=== PATIENT | female | born 1980 | race Hispanic/Latino ===

== ENCOUNTER 2021-01-22 15:41 | Day surgery (SDC) | payer MEDICARE, OTHER ==
[~2021-01-22] VITALS: Ht 162.6 cm; Wt 66.5 kg
--- OUTSIDE RECORDS SUMMARY | 2021-01-22 15:44 | XMS ---
PreManage Notification: GABI GARCIA Security International Representative Events No recent Security Events currently on file CRITERIA MET - [facility] - 2 Visits in 30 Days - [facility] CARE PROVIDERS MARIBEL PADILLA Physician Hotel Yardperson Current PHONE: [phone] Aggie Sinha Vice President Of Recruiting/Billing Typist 11/04/2020-Current PHONE: [phone] Care Guidelines exist for the following facilities: [facility] ( 08/31/2017 ) Panfilo VISIT COUNT (12 MO.) [address] [place] [address] MARCO Day TOTAL 4 NOTE: Visits indicate total known visits. ED/UCC VISIT TRACKING (12 MO.) 01/22/2021 15:43 [facility] [place] TYPE: Emergency COMPLAINT: - LOWER ABD/PELVIC PAIN, BLEEDING, DIZZY 01/17/2021 16:39 [facility] [place] TYPE: Emergency DIAGNOSES: - Unspecified ovarian cyst, left side - Unspecified ovarian cyst, right side - PELVIC PAIN 08/24/2020 14:22 [facility] TYPE: Emergency DIAGNOSES: 11055. AMR 12208. Facial weakness 08/07/2020 16:54 [facility] DIAGNOSES: - Flank Pain - Tubulo-interstitial nephritis, not specified as acute or chronic INPATIENT VISIT TRACKING (12 MO.) No inpatient visits to display in this time frame [email or web address]
[2021-01-22] MEDS ORDERED: TAMOXIFEN CITRA20 MG PO (15:50)
[2021-01-22] MEDS ORDERED: HYDROCODON-ACE1 EA10 PO (15:50)
[2021-01-23] MEDS ORDERED: IBUPROFEN800 MG PO (10:29)
[2021-01-23] MEDS ORDERED: TYLENOL EXTRA500 MG PO (10:30)
[2021-01-23] MEDS ORDERED: OXYCODONE HCL5 MG PO (10:30)
[2021-01-23] MEDS ORDERED: ONDANSETRON ODT8 MG PO (10:33)
[2021-01-23] MEDS ORDERED: KEFLEX750 MG PO (10:36)
--- NOTE | 2021-01-24 15:46 | PATH ---
[facility] [address] [place], [place] [address] Signed SPECIMEN(S): A ENDOMETRIAL CURETTINGS SPECIMEN(S): B LEFT FALLOPIAN TUBE AND OVARY SPECIMEN SOURCE: A. ENDOMETRIAL CURETTINGS B. LEFT FALLOPIAN TUBE AND OVARY CLINICAL HISTORY: Left ovarian torsion. FINAL PATHOLOGIC DIAGNOSIS: A. Endometrium, curettage: - Weakly proliferative endometrium with glandular and stromal breakdown; no hyperplasia or neoplasia identified. B. Ovary and fallopian tube, left salpingo-oophorectomy: - Ovary with serous cystadenoma and follicular cysts. - Fallopian tube with a paratubal cyst. BRP:caw:C2NR MICROSCOPIC EXAMINATION: Histologic sections of all submitted blocks are examined by light microscopy. These findings, together with the gross examination, support the pathologic diagnosis. GROSS DESCRIPTION: Two specimens are received in two containers, labeled "CF." A. The specimen, labeled "CF, endometrial curettings," is received in formalin and consists of irregular shaped, membranous, mucinous and hemorrhagic tissues that aggregate measure 2.5 x 2.2 x 0.2 cm. Specimen is entirely submitted in cassette (A1). B. The specimen, labeled "CF, left fallopian tube and ovary," is received in formalin and consists of ovary and fallopian tube. The ovary measures 5.0 x 3.7 x 2.5 cm. Serosal surface is pink kirkpatrick, smooth. The ovary shows a cyst that measures 4.0 cm in diameter. Cyst is empty and the wall of the cyst is ruptured. The inner surface of the cyst is smooth. No papillary excrescences are grossly identified. Ovarian stroma is narrowed and measures up to 0.5 cm. Fallopian tube shows fimbria and violaceous and smooth serosa is focally congested. It measures 3.5 cm in length and 0.5 cm in diameter. Fallopian tube shows a paratubal cyst that measures 2.5 cm in PATIENT NAME: GABI GARCIA PATHOLOGY DATE OF : 80 REPORT #: [id number] PHYSICIAN: GAYATRI BABIN PCP: MARIBEL PADILLA REPORT IS CONFIDENTIAL AND NOT TO BE RELEASED WITHOUT AUTHORIZATION [facility] [address] [place], [place] [address] Signed diameter. The cyst is filled with a clear fluid. Sectioning through the tube is grossly unremarkable. Cassette Summary: (B1-B2) Ovary and ovarian cyst, branch service representative sections (B3) Fallopian tube, branch service representative sections JS (under the direct supervision of a pathologist) The Gross Description was prepared using a voice recognition system. The report was reviewed for accuracy; however, sound-alike word errors, addition and/or deletions may occur. If there is any question about this report, please contact Client Services. PERFORMING LABORATORY: The technical component was performed by [facility], [address] [place] [address] (Electrolysis Needle Operator: Nuria Tavarez MD; CLIA# [id number]). [facility], [address] [address] (CLIA# [id number]). Diagnostician: Javier Jeong MD Pathologist Electronically Signed 01/24/2021 Copies: ~ PATIENT NAME: GABI GARCIA PATHOLOGY DATE OF : 80 REPORT #: [id number] PHYSICIAN: GAYATRI BABIN PCP: MARIBEL PADILLA REPORT IS CONFIDENTIAL AND NOT TO BE RELEASED WITHOUT AUTHORIZATION
--- NOTE | 2021-01-31 19:13 | ER ---
[facility] [address] [place], [place] [address] Signed DATE OF SERVICE: 01/22/2021 REQUESTING PHYSICIAN: Dr. Espinoza. HISTORY: The patient is a 40-year-old female, 3, para 3 with a history of two weeks of pelvic pain, which worsened significantly tonight with pain radiating to her left groin. She was diagnosed with a large left ovarian cyst approximately five days ago by ultrasound in [place]. Ultrasound done in the emergency room here revealed a large left ovarian cyst, but no arterial blood flow was seen. The patient has also been complaining of diarrhea, nausea, anorexia, as well as chills, but denied any fever. She has also been having abnormal bleeding over the last several weeks. Her history is otherwise remarkable for diagnosis of breast cancer made in April of this year with biopsy. This was followed by four months of chemotherapy and then, she underwent lumpectomies in November and December of this year. She is due to start RT soon. This was delayed because of the ovarian cyst diagnosis. She is on tamoxifen currently. She had stopped her periods initially in September with her chemo. Her treatment is being guided by a team at [facility]. PAST MEDICAL HISTORY/ILLNESSES: Positive for asthma. Positive for migraines. 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 PAST SURGICAL HISTORY: Breast lumpectomy x2, lap tere, section x3 with tubal ligation. CURRENT MEDICATIONS: Tamoxifen, oxycodone, and albuterol. ALLERGIES: She has no known allergies, though she did have Guillain-Rake with a flu shot previously. HABITS: Negative for tobacco, alcohol, or drug use. REVIEW OF SYSTEMS: Otherwise negative. PHYSICAL EXAMINATION: Electronically Signed By: JOSSELINE DENNY MD 01/31/21 191 PATIENT NAME: GABI GARCIA EMERGENCY ROOM REPORT DATE OF : 80 REPORT #: [id number] PHYSICIAN: JOSSELINE DENNY MD PCP: MARIBEL PADILLA REPORT IS CONFIDENTIAL AND NOT TO BE RELEASED WITHOUT AUTHORIZATION [facility] [address] [place], [place] [address] Signed VITAL SIGNS: Blood pressure is 131/76, pulse 78, temperature 98.5. GENERAL: She is a well-developed, well-nourished female, moderate distress, lying very still on a gurney. LUNGS: Clear. HEART: Regular rate and rhythm without murmur. ABDOMEN: Positive bowel sounds. Soft, tender in the lower abdomen with some localized rebound on the left. PELVIC: Deferred. LABORATORY DATA: H and H are 12.1 and 37, white count 6.9, platelets 250. CMP was normal. Urinalysis was consistent with UTI. Ultrasound revealed a left ovary of 7.1 x 6.9 x 6.7 with a complex cystic mass and no blood flow. The right was normal and a thickened endometrial stripe. IMPRESSION: A 40-year-old female with likely torsed left ovarian cyst. It is possible the ovary may be saved but given her current diagnosis of estrogen dependent breast cancer, she may be better served with removal of this ovary. Because of her prior surgery, she is at increased risk of needing an open procedure. The risks otherwise of infection, bleeding, injury to intraabdominal organs as well as possible need for laparotomy were all discussed and she had no questions. The patient also has abnormal uterine bleeding on tamoxifen. It is unlikely the bleeding is related to uterine cancer but this cannot be excluded and endometrial sampling is also recommended. The patient consented to this procedure as well. The patient also appears to have a current UTI as well as her ongoing breast cancer. PLAN: Laparoscopy with probable LSO, endometrial sampling. MD LILI GonzalezW/HEATHERL /[id number] Electronically Signed By: JOSSELINE DENNY MD 01/31/213 PATIENT NAME: GABI GARCIA EMERGENCY ROOM REPORT DATE OF : [birth year] REPORT #: [id number] PHYSICIAN: JOSSELINE DENNY MD PCP: MARIBEL PADILLA REPORT IS CONFIDENTIAL AND NOT TO BE RELEASED WITHOUT AUTHORIZATION [facility] [address] [place] [id number] Signed Copies: ~ Electronically Signed By: JOSSELINE DENNY MD 01/31/211912 PATIENT NAME: GABI GARCIA EMERGENCY ROOM REPORT DATE OF : [birth year] REPORT #: [id number] PHYSICIAN: JOSSELINE DENNY MD PCP: MARIBEL PADILLA REPORT IS CONFIDENTIAL AND NOT TO BE RELEASED WITHOUT AUTHORIZATION
--- NOTE | 2021-01-31 19:22 | OR ---
[facility] [address] [place], [place] [address] Signed DATE OF OPERATION: 01/23/2021 SURGEON: Josseline Self MD BAG BAILER: Dr. Irene. PREOPERATIVE DIAGNOSIS: Probable left ovarian torsion with abnormal uterine bleeding, breast cancer, tamoxifen use. POSTOPERATIVE DIAGNOSIS: Left ovarian cyst, probable intermittent torsion, abnormal uterine bleeding, breast cancer, tamoxifen use. PROCEDURE: Laparoscopy with LSO, endometrial sampling. ANESTHESIA: General ET. ESTIMATED BLOOD LOSS: 10 mL. DRAINS: None. INDICATIONS AND FINDINGS: The patient is a 40-year-old female, who was diagnosed with breast cancer in April of this year. She then received four months of chemo and then actually had lumpectomy done in November and December of this year. She has been having ongoing pain for the last two weeks. She was diagnosed with a left ovarian cyst approximately five days ago in [place]. Her pain worsened and her symptoms worsened with chills, anorexia, diarrhea, and worsening abdominal and pelvic pain, and she presented to our emergency room. Ultrasound done in the emergency room revealed an enlarged left ovarian mass with no arterial flow seen. She was also having abnormal bleeding. She has been on tamoxifen because of her breast cancer. It was felt appropriate to do endometrial sampling as well as remove her probable torsed ovary. At the time of surgery, her exam under anesthesia revealed a very large cervix. There was a moderate amount of blood. The uterus itself was top-normal size, irregular contour. There was a large mass in the Electronically Signed By: JOSSELINE SELF MD 01/31/211921 PATIENT NAME: GABI GARCIA OPERATIVE REPORT DATE OF : 80 REPORT #: [id number] PHYSICIAN: JOSSELINE SELF MD PCP: MARIBEL PADILLA REPORT IS CONFIDENTIAL AND NOT TO BE RELEASED WITHOUT AUTHORIZATION [facility] [address] [place], [place] [address] Signed left lower quadrant. On laparoscopy, the right tube and ovary appeared normal other than a prior tubal ligation. There were scarring over the anterior uterus consistent with her three cesareans. The left ovary was enlarged approximately 8 cm and was twisted somewhat on itself on the left, but it did appear viable. DESCRIPTION OF PROCEDURE: The patient was prepped and draped in the dorsal lithotomy position. A weighted speculum was placed and the anterior lip of the cervix was visualized and grasped with a single-tooth tenaculum. The endocervical canal was then dilated and a small curette introduced and tissue obtained with curettings and sent to pathology. The Hulka clamp was then placed and the tenaculum and speculum were removed. Attention was then directed above. The infraumbilical area was injected with 0.5% Marcaine plain and an incision made with a knife. Each layer was serially elevated and incised until the fascia was opened and identified. Stay sutures of 0 Vicryl were placed. The peritoneum was opened bluntly and a Laura cannula was placed and tied into place. CO2 was then introduced into the abdomen under low pressures. When the abdomen was appropriately distended, the pelvis was visualized and the planned procedure appeared appropriate. The secondary ports were placed. These were placed laterally. Each of these areas was transilluminated, injected with the Marcaine, incision made with a knife and the trocar placed under direct vision. The left side port was a 5 mm port and the right was a Veress needle followed by the expanding port. Following this, the cyst was grasped and the infundibulopelvic ligament identified. This was serially coagulated and divided using the LigaSure [place] device. This was carried down through the broad ligament and then come across the utero-ovarian pedicle as well as the tube at the uterine junction. It did rupture during the manipulation with clear yellowish fluid seen. Following this, the specimen was placed in an EndoCatch and was brought up to the umbilical port and pulled out through the incision. The Laura was then replaced and the abdomen was reinflated. The abdomen was copiously irrigated and inspected and good hemostasis was notec. An Endoloop was placed near the junction of the infundibulo- opelvic ligament and the uterus using the 0 PDS for added assurance of hemostasis. The ureter was visible below the surgical site and was seen to be clear of the area. The abdomen was irrigated, inspected and good hemostasis noted. The procedure was terminated. The instruments removed from the abdomen after allowing as much CO2 as possible to escape. The fascial incision at the umbilicus was re-identified and was closed in a running suture of 0 Vicryl. The stay sutures were tied across as well. The skin incisions were closed with subcuticular sutures of 3-0 Vicryl Rapide. Attention was then directed down below and the instruments removed. The cervix was again visualized. There was no evidence of any bleeding from the tenaculum sites or the Hulka and the procedure was terminated. The patient was taken to the recovery room in good condition. Electronically Signed By: JOSSELINE SELF MD 01/31/211921 PATIENT NAME: GABI GARCIA OPERATIVE REPORT DATE OF : 80 REPORT #: [id number] PHYSICIAN: JOSSELINE SELF MD PCP: MARIBEL PADILLA REPORT IS CONFIDENTIAL AND NOT TO BE RELEASED WITHOUT AUTHORIZATION [address] [place], [place] [address] Signed Josseline Self MD PJW/MODL /[id number] cc: Dr. Irene Copies: ~ Electronically Signed By: JOSSELINE SELF MD 01/31/211921 PATIENT NAME: GABI GARCIA OPERATIVE REPORT DATE OF : [birth year] REPORT #: [id number] PHYSICIAN: JOSSELINE SELF MD PCP: MARIBEL PADILLA REPORT IS CONFIDENTIAL AND NOT TO BE RELEASED WITHOUT AUTHORIZATION
== END 2021-01-23 11:00 | disposition home or self-care (01) ==
LOC: ED 15:41 → MS 23:56 → DS 23:56
PROVIDERS: ATTEND Obstetrics & Gynecology
PROC: 0UT14ZZ Resection of Left Ovary, Percutaneous Endoscopic Approach (ICD-10-PCS; principal; 2021-01-23)
PROC: 0UT64ZZ Resection of Left Fallopian Tube, Percutaneous Endoscopic Approach (ICD-10-PCS; 2021-01-23)
DX: N83.02 Follicular cyst of left ovary (principal); D27.1 Benign neoplasm of left ovary; C50.919 Malignant neoplasm of unspecified site of unspecified female breast; J45.909 Unspecified asthma, uncomplicated; Z88.7 Allergy status to serum and vaccine
CPT/HCPCS: 00840; 76830; 76856; 80053; 81001; 84702; 84703; 85025; 87088; 87186; 88305; 88307; 96365; 96375; 99285-25; A9270; C9803; J0696; J1100; J1170; J1885; J2001; J2250; J2270; J2405; J2704; J3010; J7030; J7121; U0003

== ENCOUNTER 2021-01-30 09:35 | Emergency (ER) | payer MEDICARE, OTHER ==
[~2021-01-30] VITALS: Ht 162.6 cm; Wt 65.3 kg
[~2021-01-30 09:35] MED LIST: HYDROCODON-ACE1 EA10 PO; IBUPROFEN800 MG PO; KEFLEX750 MG PO; ONDANSETRON ODT8 MG PO; OXYCODONE HCL5 MG PO; TAMOXIFEN CITRA20 MG PO; TYLENOL EXTRA500 MG PO
--- OUTSIDE RECORDS SUMMARY | 2021-01-30 09:38 | XMS ---
PreManage Notification: GABI GARCIA Security Documentation Specialist Events No recent Security Events currently on file CRITERIA MET - [facility] - [facility] - 2 Visits in 30 Days CARE PROVIDERS MARIBEL PADILLA Physician Front Elevator Operator 09/27/2020-Current PHONE: [phone] Aggie Sinha Web Ui Designer/Senior Media Planner 11/04/2020-Current PHONE: [phone] Care Guidelines exist for the following facilities: [facility] ( 08/31/2017 ) Panfilo VISIT COUNT (12 MO.) 1 [facility] 1 [facility] 1 [facility] 2 MARCO Day TOTAL 5 NOTE: Visits indicate total known visits. ED/UCC VISIT TRACKING (12 MO.) 01/30/2021 09:36 [facility] [place] TYPE: Emergency COMPLAINT: - POST OP ISSUE, N/V/D, FEVER 01/22/2021 15:43 [facility] [place] TYPE: Emergency COMPLAINT: - LOWER ABD/PELVIC PAIN, BLEEDING, DIZZY 01/17/2021 16:39 [facility] TYPE: Emergency DIAGNOSES: - Unspecified ovarian cyst, left side - Unspecified ovarian cyst, right side - PELVIC PAIN 08/24/2020 14:22 [facility] TYPE: Emergency DIAGNOSES: 34525. AMR 43504. 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
[2021-01-30] MEDS ORDERED: VENTOLIN HFA18 GM INH (10:04)
[2021-01-30] MEDS ORDERED: XARELTO15 MG PO (19:02)
[2021-01-30] MEDS ORDERED: HYDROCODON-ACE1 EA10 PO (19:02)
--- OUTSIDE RECORDS SUMMARY | 2021-01-30 19:22 | XMS ---
PreManage Notification: GABI GARCIA Security Customer Account Administrator Events No recent Security Events currently on file CRITERIA MET - [facility] - 2 Visits in 30 Days CARE PROVIDERS MARIBEL PADILLA Physician Mushroom Cultivator 09/27/2020-Current PHONE: [phone] Aggie Sinha Jackscrew Man/Appraisal Manager 11/04/2020-Current PHONE: [phone] Care Guidelines exist for the following facilities: [facility] ( 08/31/2017 ) Panfilo VISIT COUNT (12 MO.) 1 [facility] 1 [facility] [place] [facility] 1 [place] [address] MARCO Day TOTAL 5 NOTE: Visits indicate total known visits. ED/UCC VISIT TRACKING (12 MO.) 01/30/2021 09:36 [facility] [place] TYPE: Emergency COMPLAINT: - HYPONATREMIA, HYPOKALEMIA, COVID 01/22/2021 15:43 [facility] [place] TYPE: Emergency COMPLAINT: - LOWER ABD/PELVIC PAIN, BLEEDING, DIZZY 01/17/2021 16:39 [facility] TYPE: Emergency DIAGNOSES: - Unspecified ovarian cyst, left side - Unspecified ovarian cyst, right side - PELVIC PAIN 08/24/2020 14:22 [facility] TYPE: Emergency DIAGNOSES: 59309. AMR 02641. Facial weakness 08/07/2020 16:54 [facility]: [facility] DIAGNOSES: - Flank Pain - Tubulo-interstitial nephritis, not specified as acute or chronic INPATIENT VISIT TRACKING (12 MO.) 01/30/2021 12:24 [facility] [place] TYPE: Critical Care COMPLAINT: - HYPONATREMIA, HYPOKALEMIA, COVID [email or web address]
--- NOTE | 2021-01-30 21:28 | EKG ---
[facility] [address] [facility] [place], [place] [address] Signed Normal sinus rhythm Cannot rule out Anterior infarct , age undetermined Abnormal ECG No previous ECGs available Confirmed by JESSICA CROWDER DO ([id number]) on 01/30/2021 9:28:15 PM Electronically Signed By: JESSICA CROWDER DO 01/30/212127 PATIENT NAME: GABI GARCIA Electrocardiogram DATE OF : 80 PHYSICIAN: JESSICA CROWDER DO REPORT #: [id number] REPORT IS CONFIDENTIAL AND NOT TO BE RELEASED WITHOUT AUTHORIZATION
== END 2021-01-30 19:21 | disposition home or self-care (01) ==
LOC: ED 09:35 → CCU 12:24 → ED 19:21
DX: U07.1 COVID-19 (principal); E87.1 Hypo-osmolality and hyponatremia; E87.6 Hypokalemia; J45.909 Unspecified asthma, uncomplicated; Z85.3 Personal history of malignant neoplasm of breast; Z88.7 Allergy status to serum and vaccine; Z79.899 Other long term (current) drug therapy
CPT/HCPCS: 71045; 74177; 80048; 80053; 81001; 83605; 83690; 84703; 85025; 93005; 93010; 96375; 99285-25; J1170; J2060; J2405; J7030; M0243; Q0244; Q9967; U0003

== ENCOUNTER 2021-04-12 09:53 | Emergency (ER) | payer MEDICARE, OTHER ==
[~2021-04-12] VITALS: Ht 162.6 cm; Wt 65.3 kg
[~2021-04-12 09:53] MED LIST changes: +VENTOLIN HFA18 GM INH; +XARELTO15 MG PO
--- OUTSIDE RECORDS SUMMARY | 2021-04-12 09:56 | XMS ---
PreManage Notification: GABI GARCIA Security Transfer Car Operator Drier Events No recent Security Events currently on file CRITERIA MET - [facility] PROVID[facility] MARIBEL PADILLA Physician Gasoline Service Attendant 09/27/2020-Current PHONE: Unknown Aggie Sinha Team Assistant/Education Diagnostician 03/06/2021-Current PHONE: [phone] Care Guidelines exist for the following facilities: [facility] ( 08/31/2017 ) Panfilo VISIT COUNT (12 MO.) 1 [facility] [address] [facility] 1 [facility] 3 MARCO Day TOTAL 6 NOTE: Visits indicate total known visits. ED/UCC VISIT TRACKING (12 MO.) 04/12/2021 09:54 [facility] [place] TYPE: Emergency COMPLAINT: - DIZZINESS 01/30/2021 09:36 [facility] TYPE: Emergency COMPLAINT: - HYPONATREMIA, HYPOKALEMIA, COVID DIAGNOSES: - Other mcc (current) drug therapy - Personal history of malignant neoplasm of breast - Hypo-osmolality and hyponatremia - COVID-19 - Hypokalemia - Allergy status to serum and vaccine - Nausea with vomiting, unspecified - Unspecified asthma, uncomplicated 01/22/2021 15:43 [facility] [place] TYPE: Emergency COMPLAINT: - LOWER ABD/PELVIC PAIN, BLEEDING, DIZZY 01/17/2021 16:39 [facility] [place] TYPE: Emergency DIAGNOSES: - Unspecified ovarian cyst, left side - Unspecified ovarian cyst, right side - PELVIC PAIN 08/24/2020 14:22 [facility] TYPE: Emergency DIAGNOSES: 03897. AMR 02048. Facial weakness 08/07/2020 16:54 [facility] DIAGNOSES: - Flank Pain - Tubulo-interstitial nephritis, not specified as acute or chronic INPATIENT VISIT TRACKING (12 MO.) 01/30/2021 12:24 [facility] TYPE: Critical Care COMPLAINT: - HYPONATREMIA, HYPOKALEMIA, COVID [email or web address]
== END 2021-04-12 20:49 | disposition home or self-care (01) ==
LOC: ED 09:53
DX: R42 Dizziness and giddiness (principal); R10.32 Left lower quadrant pain; J45.909 Unspecified asthma, uncomplicated; Z79.899 Other long term (current) drug therapy; Z88.7 Allergy status to serum and vaccine; Z85.3 Personal history of malignant neoplasm of breast
CPT/HCPCS: 70450; 74177; 80053; 81001; 84703; 85025; 96374; 96375; 99284-25; J1100; J1200; J1885; J2765; J3360; J7030; Q9967

== ENCOUNTER 2024-06-25 10:16 | Emergency (ER) | payer OTHER ==
[~2024-06-25] VITALS: Ht 162.6 cm; Wt 59.9 kg
[2024-06-25] MEDS ORDERED: NITROFURANTOIN100 M1 PO (10:34)
[2024-06-25] MEDS ORDERED: METRONIDAZOLE500 MG PO (10:35)
[2024-06-25] MEDS ORDERED: HYDROmorphone HCL 1 MG/ML SYR IV PRN (10:45)
[2024-06-25] MEDS ORDERED: KETOROLAC TROMETHAMINE 15 MG/ML VIAL IV ONE (10:45)
[2024-06-25 10:47] LABS: BASOPHILS 0.6 % (0-2); EOSINOPHILS 1.4 % (0-6); HEMATOCRIT 38.1 % (35.0-50.0); HEMOGLOBIN 13.2 g/dL (12.0-18.0); LYMPHOCYTES 17.2 % (24-44); MCH 31.7 (27-36); MCHC 34.6 g/dl (30-36); MCV 91.4 fl (81-99); MONOCYTES 7.8 % (0-12); PLATELET COUNT 272 K/uL (140-440); RBC 4.17 M/ul (4.3-5.7); RDW 13.2 (10.5-15.0)
[2024-06-25 11:02] LABS: ALBUMIN 3.7 g/dL (3.4-5.0); ALBUMIN/GLOBULIN RATIO 1.12 (1.1-2.4); ANION GAP 11.4 (7-21); BILIRUBIN, TOTAL 1.2 mg/dL (0.2-1.0); BUN/CREATININE RATIO 13.63 (6.0-28.6); CALCIUM 8.6 mg/dL (8.5-10.1); CREATININE, SERUM 0.88 mg/dL (0.55-1.02); POTASSIUM 3.4 mmol/L (3.5-5.1)
[2024-06-25 11:55] LABS: BILIRUBIN, URINE NEGATIVE (negative); BLOOD/HGB, URINE SMALL (Negative); KETONE, URINE NEGATIVE (Negative); LEUK ESTERASE, URINE NEGATIVE (negative); NITRITE, URINE NEGATIVE (negative); PH, URINE 6.5 (5-7)
[2024-06-25 12:02] LABS: BACTERIA, URINE NONE SEEN /hpf (negative); CASTS, URINE NONE SEEN \\lpf; COLLECTION TYPE, URINE CLEAN CATCH; CRYSTALS, URINE NONE SEEN (0-1+); REFLEX CULTURE, URINE No (No)
[2024-06-25] MEDS ORDERED: HYDROCODON-ACE1 EA10 PO (13:32)
[2024-06-25 13:40] VITALS: BP 143/93
== END 2024-06-25 13:40 | disposition home or self-care (01) ==
LOC: ED 10:16
PROVIDERS: Emergency Medicine
DX: R10.2 Pelvic and perineal pain (principal); Z88.7 Allergy status to serum and vaccine; Z79.899 Other long term (current) drug therapy
CPT/HCPCS: 36415; 74177; 76830; 76856; 80053; 81001; 84703; 85025; J1171; J1885; Q9967